=== PATIENT | male | born 1955 | race Caucasian/White ===

== ENCOUNTER 2019-10-04 21:44 | Emergency (ER) | payer BC ==
[~2019-10-04] VITALS: Ht 182.9 cm; Wt 108.9 kg
[2019-10-04 22:04] VITALS: BP 154/92
== END 2019-10-05 00:25 | disposition home or self-care (01) ==
LOC: ED 23:59
DX: S63.295A Dislocation of distal interphalangeal joint of left ring finger, initial encounter (principal); W22.01XA Walked into wall, initial encounter; Y93.89 Activity, other specified; Y92.89 Other specified places as the place of occurrence of the external cause; Y99.8 Other external cause status
CPT/HCPCS: 26770; 99284